=== PATIENT | female | born 1975 | race Caucasian/White ===

== ENCOUNTER 2019-04-20 12:04 | Emergency (ER) | payer SELFPAY ==
[~2019-04-20] VITALS: Ht 162.6 cm; Wt 63.5 kg
[2019-04-20] MEDS ORDERED: LIDOCAINE VISCUS 2% 15 ML UDC MM ONE (12:30)
[2019-04-20] MEDS ORDERED: MAG HYDROX/AL HYDROX/SIMETH 30 ML LIQUID UDC PO ONE (12:30)
[2019-04-20] MEDS ORDERED: ACETAMINOPHEN 325 MG TABLET PO ONE (12:30)
[2019-04-20 12:43] LABS: BASOPHILS % (AUTO) 0.7 % (0.0-2.0); EOSINOPHILS % (AUTO) 0.8 % (0.0-7.0); HEMATOCRIT 41.2 % (31.2-41.9); HEMOGLOBIN 13.7 g/dL (10.9-14.3); LYMPHOCYTES # (AUTO) 1.5 K/uL (20.0-40.0); LYMPHOCYTES % (AUTO) 26.5 % (20.5-51.5); MEAN CORPUSCULAR HEMOGLOBIN 31.1 uug (24.7-32.8); MEAN CORPUSCULAR HGB CONC 33 g/dL (32.3-35.6); MEAN CORPUSCULAR VOLUME 93.5 fL (75.5-95.3); MONOCYTES # (AUTO) 0.4 K/uL (2.0-10.0); MONOCYTES % (AUTO) 6.8 % (0.0-11.0); NEUTROPHILS # (AUTO) 3.7 K/uL (1.8-8.9); NEUTROPHILS % (AUTO) 65.2 % (38.5-71.5); PLATELET COUNT (AUTO) 250 K/uL (179-408); RED BLOOD CELL COUNT(AUTO) 4.41 MIL/uL (3.63-4.92); WHITE BLOOD COUNT (AUTO) 5.6 K/uL (3.8-11.8)
[2019-04-20 12:46] LABS: *URINE HCG, QUAL NEGATIVE (NEGATIVE)
[2019-04-20] MEDS ORDERED: LIDOCAINE VISCUS 2% 15 ML UDC ONE (12:47)
[2019-04-20] MEDS ORDERED: ACETAMINOPHEN 325 MG TABLET ONE ×2 (12:47→12:49)
[2019-04-20] MEDS ORDERED: MAG HYDROX/AL HYDROX/SIMETH 30 ML LIQUID UDC ONE (12:48)
--- NOTE | 2019-04-20 12:51 | NUR ---
PT IS IN ROOM #2A. DR ALARCON EVALUATED THE PT.
[2019-04-20 12:52] LABS: CREATININE 0.8 mg/dL (0.6-1.3); POTASSIUM 3.8 mmol/L (3.5-5.1)
--- NOTE | 2019-04-20 14:30 | NUR ---
PT DECIDED TO LEAVE HOSPITAL AMA. DR ALARCON EXPLAINED ALL RISKS OF LEAVING HOSPITAL AMA TO THE PT. PT WERBALIZED FULL UNDERSTANDING ALL RISKS. PT SIGNED AMA FORM AND LEFT HOSPITAL ER WITH THER FRIEND. GAIT IS STABLE. PT DENIES PAIN. NO SOB. NO N/V.
[2019-04-20 14:33] VITALS: BP 129/77
== END 2019-04-20 14:33 | disposition left against medical advice (07) ==
LOC: ER 12:04
DX: R07.9 Chest pain, unspecified (principal); R11.0 Nausea; Z88.2 Allergy status to sulfonamides; Z88.8 Allergy status to other drugs, medicaments and biological substances
CPT/HCPCS: 36415; 70030-TC; 71045; 84703; 85025; 93005; A4663